=== PATIENT | female | born 1945 | race Two or more races ===

== ENCOUNTER → 2017-05-31 | Emergency (ER) | payer OTHER ==
[~2017-05-31] VITALS: Ht 154.9 cm; Wt 69.9 kg
[~2017-05-31] MED LIST: DICLOFENAC SODI50 MG PO; SMZ-TMP DS 800-1 TAB PO
== END | disposition left against medical advice (07) ==
LOC: ER 10:12
DX: Z53.20 Procedure and treatment not carried out because of patient's decision for unspecified reasons (principal)

== ENCOUNTER 2018-09-14 15:14 | Emergency (ER) | payer OTHER ==
[~2018-09-14] VITALS: Ht 154.9 cm; Wt 56.7 kg
== END 2018-09-14 16:51 | disposition home or self-care (01) ==
LOC: ER 15:14
DX: M79.645 Pain in left finger(s) (principal); M79.644 Pain in right finger(s)

== ENCOUNTER 2019-12-16 10:29 | Outpatient (CLI) | payer OTHER | END 2019-12-16 10:39 | disposition home or self-care (01) | LOC: NUCLEAR 10:29 | DX: R22.43 Localized swelling, mass and lump, lower limb, bilateral (principal); I87.2 Venous insufficiency (chronic) (peripheral) ==